=== PATIENT | male | born 1970 | race Caucasian/White ===

== ENCOUNTER 2016-12-30 07:47 | Emergency (ER) | payer BC, OTHER ==
[2016-12-30 08:05] VITALS: BP 166/100
--- NOTE | 2016-12-30 09:14 | Emergency Department Report ---
ED Lower Extremity HPI - General Chief Complaint: Extremity Injury, Lower Stated Complaint: RT FOOT BIG TO PAIN Time Seen by Provider: 12/30/16 08:50 Source: patient Mode of arrival: Ambulatory Limitations: No Limitations - History of Present Illness Initial Comments: This is a 46-year-old male with PMH of DM that presents to the ED c/o of pain and drainage of amputated right great toe site. Patient stated he was in [facility] on 12/09/2016 and had his right great toe amputaion done by Dr. Butcher. Patient stated he was prescribed Augmentin x14 days. Patient stated he finished his full course of antibiotics. Patient also stated he has a follow -up appointment on 01/26/2017. Patient denies any trauma to region currently. Denies any new onset changes pain. Denies redness, fever, chills, numbness, tingling, headache, stiff neck, chest and shortness of breath. Patient stated he has a packing in the surgical sight and drainage. He denies any allergies. MD Complaint: other (right great toe amputation) -: Gradual, month(s) (1) Severity: moderate Severity scale (0 -10): 4 Improves With: nothing Worsens With: nothing Associated Symptoms: ambulatory. denies: snap/pop sensation, swelling, numbness , tingling, unable to bear weight, able to partially bear weight - Related Data Previous Rx's Medication Instructions Recorded Last Taken Type Calcium Acetate/Aluminum Sulf 1 each TP BID #60 packet 02/25/16 Unknown Rx [[place] Packet] Insulin Glargine [Lantus VIAL] 20 units SUB-Q QHS #100 units 02/25/16 Unknown Rx Insulin Glulisine [Apidra] 4 units SUB-Q AC #100 units 02/25/16 Unknown Rx Levofloxacin [Levaquin TAB] 750 mg PO Q24HR #14 tablet 02/25/16 Unknown Rx Lisinopril [Zestril TAB] 10 mg PO QDAY #30 tablet 02/25/16 Unknown Rx oxyCODONE /ACETAMINOPHEN [Percocet 1 tab PO Q6H PRN #30 tablet 02/25/16 Unknown Rx 5/325 mg] Ibuprofen [Motrin 600 MG tab] 600 mg PO Q8H PRN #30 tablet 12/30/16 Unknown Rx Allergies Allergy/AdvReac Type Severity Reaction Status Date / Time No Known Allergies Allergy Unverified 02/20/16 13:35 ED Review of Systems ROS: Stated complaint: RT FOOT BIG TO PAIN Other details as noted in HPI Constitutional: denies: chills, fever Eyes: denies: eye pain, eye discharge, vision change ENT: denies: ear pain, throat pain Respiratory: denies: cough, shortness of breath, wheezing Cardiovascular: denies: chest pain, palpitations Endocrine: no symptoms reported Gastrointestinal: denies: abdominal pain, nausea, diarrhea Genitourinary: denies: urgency, dysuria Musculoskeletal: denies: back pain, joint swelling, arthralgia Skin: denies: rash, lesions Neurological: denies: headache, weakness, paresthesias Psychiatric: denies: anxiety, depression Hematological/Lymphatic: denies: easy bleeding, easy bruising ED Past Medical Hx - Past Medical History Previous Medical History?: Yes Hx Congestive Heart Failure: No Hx Diabetes: Yes (10 yrs ago) Hx Asthma: No Hx COPD: No - Surgical History Past Surgical History?: No - Social History Smoking Status: Unknown if ever smoked Substance Use Type: Alcohol - Medications Home Medications: Home Medications Medication Instructions Recorded Confirmed Last Taken Type Calcium Acetate/Aluminum Sulf 1 each TP BID #60 packet 02/25/16 Unknown Rx [[place] Packet] Insulin Glargine [Lantus VIAL] 20 units SUB-Q QHS #100 units 02/25/16 Unknown Rx Insulin Glulisine [Apidra] 4 units SUB-Q AC #100 units 02/25/16 Unknown Rx Levofloxacin [Levaquin TAB] 750 mg PO Q24HR #14 tablet 02/25/16 Unknown Rx Lisinopril [Zestril TAB] 10 mg PO QDAY #30 tablet 02/25/16 Unknown Rx oxyCODONE /ACETAMINOPHEN [Percocet 1 tab PO Q6H PRN #30 tablet 02/25/16 Unknown Rx 5/325 mg] Ibuprofen [Motrin 600 MG tab] 600 mg PO Q8H PRN #30 tablet 12/30/16 Unknown Rx ED Physical Exam - General Limitations: No Limitations General appearance: alert, in no apparent distress - Head Head exam: Present: atraumatic, normocephalic, normal inspection - Eye Eye exam: Present: normal appearance, PERRL, EOMI. Absent: scleral icterus, conjunctival injection, nystagmus, periorbital swelling, periorbital tenderness Pupils: Present: normal accommodation - ENT ENT exam: Present: normal exam, normal orophraynx, mucous membranes moist, TM's normal bilaterally, normal external ear exam - Neck Neck exam: Present: normal inspection, full ROM. Absent: tenderness, meningismus, lymphadenopathy, thyromegaly - Respiratory Respiratory exam: Present: normal lung sounds bilaterally. Absent: respiratory distress, wheezes, rales, rhonchi, stridor, chest wall tenderness, accessory muscle use, decreased breath sounds, prolonged expiratory - Cardiovascular Cardiovascular Exam: Present: regular rate, normal rhythm. Absent: systolic murmur, diastolic murmur, rubs, gallop - GI/Abdominal GI/Abdominal exam: Present: soft, normal bowel sounds. Absent: distended, tenderness, guarding, rebound, rigid, diminished bowel sounds - Rectal Rectal exam: Present: deferred - Extremities Exam Extremities exam: Present: normal inspection, full ROM, normal capillary refill. Absent: tenderness, pedal edema, joint swelling, calf tenderness - Expanded Lower Extremity Exam Left Hip exam: Present: normal inspection, full ROM. Absent: tenderness, swelling, abrasion Upper Leg exam: Present: normal inspection, full ROM. Absent: tenderness, swelling Knee exam: Present: normal inspection, full ROM. Absent: tenderness, swelling, abrasion, laceration Lower Leg exam: Present: normal inspection, full ROM. Absent: tenderness, swelling, abrasion Ankle exam: Present: normal inspection, full ROM. Absent: tenderness, swelling Foot/Toe exam: Present: normal inspection (3 cm open surgical wound to the right great toe. Packed with a uniform. No posterior drainage noted. No swelling is a latest. No swelling. No redness.), full ROM. Absent: tenderness , swelling, abrasion, laceration, ecchymosis, deformity, crepidus, dislocation, erythema, amputation, puncture wound, foreign body, calcaneal tenderness, tenderness at base of 5th metatarsal, nail avulsion, subungual hematoma Neuro vascular tendon exam: Present: no vascular compromise. Absent: pulse deficit, abnormal cap refill, motor deficit, sensory deficit, tendon deficit, extremity cold to touch, pallor, abnormal 2-point discrimination, decreased fine /light touch, foot drop, peroneal nerve deficit, significant pain with passive ROM of distal joint Gait: Positive: observed and normal - Back Exam Back exam: Present: normal inspection, full ROM. Absent: tenderness, CVA tenderness (R), CVA tenderness (L), muscle spasm, paraspinal tenderness, vertebral tenderness, rash noted - Neurological Exam Neurological exam: Present: alert, oriented X3, CN II-XII intact, normal gait, reflexes normal - Psychiatric Psychiatric exam: Present: normal affect, normal mood - Skin Skin exam: Present: warm, dry, intact, normal color. Absent: rash ED Course Vital Signs 12/30/16 08:01 Temperature 98.9 F Pulse Rate 91 H Blood Pressure 166/100 O2 Sat by Pulse 100 Oximetry - Reevaluation(s) Reevaluation #1: 12/30/16 09:39 Patient is able speak full symptoms with no signs of distress. ED Lower Extremity MDM - Medical Decision Making ED course; this is a 46-year-old male that presents with pain to her right toe status post amputation 1- patient was examined myself. Patient is hemodynamically stable. There is no obvious signs of any infection, pus, drainage, or redness. There is no swelling. I removed old iodoform packing in place with the iodoform one fourth packing. I then covered the area with a 4 x 4 and Andrei. 2- patient was instructed to follow-up with his surgeon in 3-5 days or if symptoms such as joint swelling, joint redness, fever, chills, nausea, vomiting , chest pain short of breath return to emergency room as soon as possible. 3-upon examination. He stated he finished full course of antibiotics. Patient received ibuprofen at the time of discharge repeat. 4-upon discharge, the patient is not toxic or ill in appearance. No signs of any distress noted. Patient refused a discharge plan of care with no further questions noted by the patient. Critical care attestation.: If time is entered above; I have spent that time in minutes in the direct care of this critically ill patient, excluding procedure time. ED Disposition Clinical Impression: Pain at surgical incision Amputated toe Qualifiers: Laterality: right Qualified Code(s): Z89.421 - Acquired absence of other right toe(s) Disposition: - TO HOME OR SELFCARE Is pt being admited?: No Does the pt Need Aspirin: No Condition: Stable Instructions: Acute Wound Care (ED), Wound Infection (ED), Ibuprofen (By mouth) Additional Instructions: follow-up with your surgeon/primary care doctor in 3-5 days or if symptoms such as joint swelling, joint redness, fever, chills, nausea, vomiting, chest pain short of breath return to emergency room as soon as possible. Keep area clean. Prescriptions: Ibuprofen [Motrin 600 MG tab] 600 mg PO Q8H PRN #30 tablet PRN Reason: Pain Referrals: PRIMARY CAREMD [Primary Care Provider] - 3-5 Days HIGINIO YOUNGBLOOD MD [Staff Physician] - 3-5 Days [facility] [Outside] - 3-5 Days [facility] [Outside] - 3-5 Days
== END 2016-12-30 09:53 | disposition home or self-care (01) ==
LOC: ED 07:47
DX: M79.674 Pain in right toe(s) (principal); G89.18 Other acute postprocedural pain; Z89.421 Acquired absence of other right toe(s); E11.9 Type 2 diabetes mellitus without complications
CPT/HCPCS: 99282

== ENCOUNTER 2017-01-10 12:37 | Emergency (ER) | payer SELFPAY ==
[2017-01-10 13:24] LABS: Hematocrit 31.4 % (35.5-45.6); Hemoglobin 10.9 gm/dl (11.8-15.2); Mean Corpuscular HGB Conc 35 % (32-34); Mean Corpuscular Hemoglobin 29 pg (28-32); Mean Corpuscular Volume 85 fl (84-94); Platelet Count 281 K/mm3 (140-440); White Blood Count 6.6 K/mm3 (4.5-11.0)
[2017-01-10 13:33] LABS: INR 1.13 (0.87-1.13)
[2017-01-10 13:35] LABS: Partial Thromboplastin Time 44.1 Sec. (24.2-36.6)
[2017-01-10 15:01] LABS: Anion Gap 19 mmol/L; BUN/Creatinine Ratio 23.33; Blood Urea Nitrogen 14 mg/dL (9-20); Calcium 8.9 mg/dL (8.4-10.2); Carbon Dioxide 24 mmol/L (22-30); Chloride 101.4 mmol/L (98-107); Glucose 160 mg/dL (75-100); Potassium 4.9 mmol/L (3.6-5.0); Sodium 139 mmol/L (137-145)
[2017-01-10 20:57] VITALS: BP 157/94
[2017-01-11] MEDS ORDERED: KEFLEX PO ONE (00:19)
--- NOTE | 2017-01-11 00:29 | Emergency Department Report ---
- General Chief Complaint: Wound/Laceration Stated Complaint: RIGHT FOOT BLEEDING Time Seen by Provider: 01/10/17 22:47 Source: patient Mode of arrival: Ambulatory Limitations: No Limitations - History of Present Illness Initial Comments: 46-year-old male with a past medical history of insulin-dependent Diabetes and hypertension presents to the hospital complaining of postoperative foot wound bleeding. Patient had amputation of his great toe secondary to complications of diabetes in November in [place]. Today patient noticed bleeding from the wound. Patient redressed the wound several times however it will start rebleeding when he would ambulate. Patient denies fever, pain, or purulent drainage. He is scheduled to see his surgeon in [place] 01/26 and does not have a local orthopedic physician or visual basic programmer. Pt was seen here 12/30 for drainage at wound site. no infection was noted. wound repacked/dressed and pt d/starr. - Related Data Previous Rx's Medication Instructions Recorded Last Taken Type Calcium Acetate/Aluminum Sulf 1 each TP BID #60 packet 02/25/16 Unknown Rx [[place] Packet] Insulin Glargine [Lantus VIAL] 20 units SUB-Q QHS #100 units 02/25/16 Unknown Rx Insulin Glulisine [Apidra] 4 units SUB-Q AC #100 units 02/25/16 Unknown Rx Levofloxacin [Levaquin TAB] 750 mg PO Q24HR #14 tablet 02/25/16 Unknown Rx Lisinopril [Zestril TAB] 10 mg PO QDAY #30 tablet 02/25/16 Unknown Rx oxyCODONE /ACETAMINOPHEN [Percocet 1 tab PO Q6H PRN #30 tablet 02/25/16 Unknown Rx 5/325 mg] Ibuprofen [Motrin 600 MG tab] 600 mg PO Q8H PRN #30 tablet 12/30/16 Unknown Rx Cephalexin [Keflex] 500 mg PO Q6HR 10 Days 01/11/17 Unknown Rx Allergies Allergy/AdvReac Type Severity Reaction Status Date / Time No Known Allergies Allergy Unverified 02/20/16 13:35 ED Review of Systems ROS: Stated complaint: RIGHT FOOT BLEEDING Other details as noted in HPI Comment: All other systems reviewed and negative Other: Constitutional: No fevers chills Eyes: No eye pain visual changes ENT: No ear pain or throat pain Neck: Denies pain Respiratory: Denies cough wheezing shortness of breath Cardiovascular: Denies chest pain, palpitations, syncope GI: Denies abdominal pain, nausea, vomiting, diarrhea : Denies dysuria Musculoskeletal: Denies back pain Skin: as per hpi Neurologic: Denies headache, numbness, weakness Psychiatric: Denies suicidal ideation, hallucinations ED Past Medical Hx - Past Medical History Hx Congestive Heart Failure: No Hx Diabetes: Yes (10 yrs ago) Hx Asthma: No Hx COPD: No - Social History Smoking Status: Never Smoker Substance Use Type: None - Medications Home Medications: Home Medications Medication Instructions Recorded Confirmed Last Taken Type Calcium Acetate/Aluminum Sulf 1 each TP BID #60 packet 02/25/16 Unknown Rx [[place] Packet] Insulin Glargine [Lantus VIAL] 20 units SUB-Q QHS #100 units 02/25/16 Unknown Rx Insulin Glulisine [Apidra] 4 units SUB-Q AC #100 units 02/25/16 Unknown Rx Levofloxacin [Levaquin TAB] 750 mg PO Q24HR #14 tablet 02/25/16 Unknown Rx Lisinopril [Zestril TAB] 10 mg PO QDAY #30 tablet 02/25/16 Unknown Rx oxyCODONE /ACETAMINOPHEN [Percocet 1 tab PO Q6H PRN #30 tablet 02/25/16 Unknown Rx 5/325 mg] Ibuprofen [Motrin 600 MG tab] 600 mg PO Q8H PRN #30 tablet 12/30/16 Unknown Rx Cephalexin [Keflex] 500 mg PO Q6HR 10 Days 01/11/17 Unknown Rx ED Physical Exam - General Limitations: No Limitations - Other Other exam information: General: No limitations, patient is alert in no acute distress Head exam: Atraumatic, normocephalic Eyes exam: Normal appearance, pupils equal reactive to light, extraocular movements intact ENT: Moist mucous membrane, normal oropharynx Neck exam: Normal inspection, full range of motion, no meningismus nontender Respiratory exam: Clear to auscultation bilateral, no wheezes, rales, crackles Cardiovascular: Normal rate and rhythm, normal heart sounds Abdomen: Soft, nondistended, and nontender, with normal bowel sounds, no rebound, or guarding Extremity: Right foot with great toe amputation. There appears to be some wound dehiscence 4x3cm. After removal of pressure dressing there is a clot that has formed at the wound site. no active bleeding.no erythema or warmth, no purulent drainage. Back: Normal Inspection, full range of motion, no tenderness Neurologic: Alert, oriented x3, cranial nerves intact, no motor or sensory deficit Psychiatric: normal affect, normal mood Skin: Warm, dry, intact ED Course Vital Signs 01/10/17 01/10/17 12:48 20:56 Temperature 98.5 F Pulse Rate 95 H 88 Respiratory 18 18 Rate Blood Pressure 139/88 Blood Pressure 157/94 [Left] O2 Sat by Pulse 100 99 Oximetry - Reevaluation(s) Reevaluation #1: 01/11/17 00:29 po keflex given - Consultations Consultation #1: 01/11/17 00:29 case d/w Dr Pineda. agree with plan to d/c on keflex. do not disturb wound for 2 days. Follow up in office for evaluation. - Procedure Description Procedures done: I redressed wound. Heliostat placed then dressed with gauze, Kerlix, and a mild pressure bandage. NO active bleeding ED Medical Decision Making - Lab Data Result diagrams: 01/10/17 12:58 01/10/17 12:58 Lab Results 01/10/17 01/10/17 01/10/17 Range/Units 12:58 12:58 12:58 WBC 6.6 (4.5-11.0) K/mm3 RBC 3.70 (3.65-5.03) M/mm3 Hgb 10.9 L (11.8-15.2) gm/dl Hct 31.4 L (35.5-45.6) % MCV 85 (84-94) fl MCH 29 (28-32) pg MCHC 35 H (32-34) % RDW 13.0 L (13.2-15.2) % Plt Count 281 (140-440) K/mm3 PT 14.4 (12.2-14.9) Sec. INR 1.13 (0.87-1.13) APTT 44.1 H (24.2-36.6) Sec. Sodium 139 (137-145) mmol/L Potassium 4.9 (3.6-5.0) mmol/L Chloride 101.4 (98-107) mmol/L Carbon Dioxide 24 (22-30) mmol/L Anion Gap 19 mmol/L BUN 14 (9-20) mg/dL Creatinine 0.6 L (0.8-1.5) mg/dL Estimated GFR > 60 ml/min BUN/Creatinine Ratio 23.33 % Glucose 160 H (75-100) mg/dL Lactic Acid (0.7-2.0) mmol/L Calcium 8.9 (8.4-10.2) mg/dL 01/10/17 Range/Units 12:58 WBC (4.5-11.0) K/mm3 RBC (3.65-5.03) M/mm3 Hgb (11.8-15.2) gm/dl Hct (35.5-45.6) % MCV (84-94) fl MCH (28-32) pg MCHC (32-34) % RDW (13.2-15.2) % Plt Count (140-440) K/mm3 PT (12.2-14.9) Sec. INR (0.87-1.13) APTT (24.2-36.6) Sec. Sodium (137-145) mmol/L Potassium (3.6-5.0) mmol/L Chloride (98-107) mmol/L Carbon Dioxide (22-30) mmol/L Anion Gap mmol/L BUN (9-20) mg/dL Creatinine (0.8-1.5) mg/dL Estimated GFR ml/min BUN/Creatinine Ratio % Glucose (75-100) mg/dL Lactic Acid 1.10 (0.7-2.0) mmol/L Calcium (8.4-10.2) mg/dL - Medical Decision Making At this time I do not see signs of active infection. I suspect that there is wound dehiscence. No active bleeding at this time. Patient will be treated empirically with Keflex and will encourage outpatient follow-up with orthopedic surgeon - Differential Diagnosis infection, wound dehiscence Critical Care Time: No Critical care attestation.: If time is entered above; I have spent that time in minutes in the direct care of this critically ill patient, excluding procedure time. ED Disposition Clinical Impression: Amputated toe, Wound dehiscence, Bleeding from wound, Insulin dependent diabetes mellitus Disposition: TO HOME OR SELFCARE Is pt being admited?: No Does the pt Need Aspirin: No Condition: Stable Instructions: Acute Wound Care (ED), Diabetes Mellitus Type 2 in Adults (ED) Additional Instructions: It is very important that you follow up with the orthopedic physician for further evaluation. You have been provided a name of the orthopedic doctor for follow-up. Return is symptoms worsen. Keep current bandage on for at least 2 days. Es muy importante que sigas con el mdico ortopdico para evaluacin adicional. Se le rios suministrado un nombre del mdico ortopdico para el seguimiento. El regreso es que los sntomas empeoran. Mantener vendaje actual en menos de 2 d as. Prescriptions: Cephalexin [Keflex] 500 mg PO Q6HR 10 Days Referrals: JORDAN PINEDA MD [Staff Physician] - 2-3 Days Time of Disposition: 00:41 Print Language: MALTESE
== END 2017-01-11 01:09 | disposition home or self-care (01) ==
LOC: ED 12:37
DX: T81.30XA Disruption of wound, unspecified, initial encounter (principal); Z89.411 Acquired absence of right great toe; E11.9 Type 2 diabetes mellitus without complications; Z79.4 Long term (current) use of insulin
CPT/HCPCS: 36415; 80048; 82140; 85027; 85610; 85730; 99283